=== PATIENT | female | born 1980 | race Hispanic/Latino ===

== ENCOUNTER 2018-09-26 21:51 | Emergency (ER) | payer BC ==
[2018-09-26 21:57] VITALS: BP 140/91; PULSE 103; RESP 16; TEMP 99; O2SAT 99
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
[2018-09-26 22:59] LABS: SQUAMOUS EPITHIAL 4 /hpf (0-5); URINE BILIRUBIN NEGATIVE (NEGATIVE); URINE BLOOD NEGATIVE (NEGATIVE); URINE CLARITY SLIGHTY-CLOUDY (Clear); URINE COLOR YELLOW (YELLOW); URINE GLUCOSE (UA) NEG (NEGATIVE); URINE LEUKOCYTE ESTERASE SMALL Leu/uL (Negative); URINE PROTEIN NEGATIVE (NEGATIVE); URINE UROBILINOGEN 0.2-1.0 mg/dL (0.2-1.0)
[2018-09-26 23:02] LABS: BARBITURATES, UR NEGATIVE (NEGATIVE); BENZODIAZEPINES, UR NEGATIVE (NEGATIVE); OPIATES, UR NEGATIVE (NEGATIVE); PHENCYCLIDINE, UR NEGATIVE (NEGATIVE)
--- NOTE | 2018-09-27 00:05 | ED PDOC ---
- Laboratory Results Lab Results: Urine Color Yellow (YELLOW) 09/26/18 22:20 Urine Clarity Slighty-cloudy (Clear) 09/26/18 22:20 Urine pH 5.0 (5.0-8.0) 09/26/18 22:20 Ur Specific [place] 1.024 (1.003-1.030) 09/26/18 22:20 Urine Protein Negative mg/dL (NEGATIVE) 09/26/18 22:20 Urine Glucose (UA) Neg mg/dL (NEGATIVE) 09/26/18 22:20 Urine Ketones Trace mg/dL (NEGATIVE) 09/26/18 22:20 Urine Blood Negative (NEGATIVE) 09/26/18 22:20 Urine Nitrate Negative (NEGATIVE) 09/26/18 22:20 Urine Bilirubin Negative (NEGATIVE) 09/26/18 22:20 Urine Urobilinogen 0.2-1.0 mg/dL (0.2-1.0) 09/26/18 22:20 Ur Leukocyte Esterase [place]/uL (Negative) 09/26/18 22:20 Urine RBC (Auto) 6 /hpf (0-3) H 09/26/18 22:20 Urine Microscopic WBC 2 /hpf (0-5) 09/26/18 22:20 Ur Squamous Epith Cells 4 /hpf (0-5) 09/26/18 22:20 - ECG O2 Sat by Pulse Oximetry: 99 Medical Decision Making Medical Decision Making: Patient endorsed to me by JESUS Rasmussen pending crisis evaluation Disposition Discussed With : Florentino Laurent - Clinical Impression Clinical Impression: Adjustment disorder - POA Present On Arrival: None - Disposition Referrals: [facility] [Outside] Disposition: Routine/Home Disposition Time: :07 Condition: FAIR Forms: [facility] (Thai)
== END 2018-09-27 01:10 | disposition home or self-care (01) ==
LOC: H.ER 21:51
DX: F43.20 Adjustment disorder, unspecified (principal)
CPT/HCPCS: 81003; 99282; G0480